=== PATIENT | female | born 1935 | race Caucasian/White ===

== ENCOUNTER 2017-10-27 10:25 | Emergency (ER) | payer SELFPAY, MEDICAID ==
[2017-10-27 12:34] LABS: URINE BLOOD (Dip) POC Trace-intact (NEGATIVE); URINE GLUCOSE (Dip) POC Negative (NEGATIVE); URINE KETONES (Dip) POC Negative (NEGATIVE); URINE LEUKOCYTE EST (Dip) POC Trace (NEGATIVE); URINE NITRITE (Dip) POC Positive (NEGATIVE); URINE TOTAL PROTEIN POC Negative (NEGATIVE)
== END 2017-10-27 13:30 | disposition home or self-care (01) ==
LOC: FTE 10:25
DX: R05 Cough (principal); R50.9 Fever, unspecified; R06.89 Other abnormalities of breathing
CPT/HCPCS: 81003; 99284